=== PATIENT | male | born 1960 | race African-American/Black ===

== ENCOUNTER 2021-01-06 09:56 | Inpatient (IN) | payer OTHER ==
[2021-01-06] MEDS ORDERED: P-EPHED 60MG/TRIPROLIDI 2.5MG TABLET PO PRN (11:00)
[2021-01-06] MEDS ORDERED: ACETAMINOPHEN 325 MG TABLET (FP) PO PRN (11:00)
[2021-01-06] MEDS ORDERED: IBUPROFEN 400 MG TABLET (FP) PO PRN (11:00)
[2021-01-06] MEDS ORDERED: guaiFENesin 200 MG/10 ML 10 ML UNIT-DOSE CUPS PO PRN (11:00)
[2021-01-06] MEDS ORDERED: NICOTINE 10 MG CARTRIDGE (INHALER) IH PRN (11:00)
[2021-01-06] MEDS ORDERED: MAGNESIUM HYDROX 2400MG/30ML ORAL SUSPENSION 30 ML CUP PO PRN (11:00)
[2021-01-06] MEDS ORDERED: MAGNESIUM CITRATE 300 ML BOTTLE PO PRN (11:00)
[2021-01-06] MEDS ORDERED: MAG HYDROX/AL HYDROX/SIMETH 30 ML UNIT-DOSE CUP PO PRN (11:00)
[2021-01-06] MEDS ORDERED: LOPERAMIDE HCL 2 MG CAPSULE PO PRN (11:00)
[2021-01-06 11:03] VITALS: BMI 26.9
[2021-01-06] MEDS ORDERED: FLU VACC QS2021-22(6MOS UP)/PF 60 MCG/0.5 ML SYRINGE IM ONE (12:00)
[2021-01-06] MEDS ORDERED: TUBERCULIN PPD 5 TU/0.1ML VIAL ID ONE ×2 (12:40→12:59)
[2021-01-06] MEDS: PRENATAL VITAMINS W/ FOLIC ACID TABLET (FP) PO SCH (12:56)
[2021-01-06] MEDS: NICOTINE 7 MG/24 HOURS TOPICAL PATCH TD SCH (12:56)
[2021-01-06] MEDS: hydrOXYzine PAMOATE 25 MG CAPSULE (FP) PO SCH ×3 (15:33→21:30)
[2021-01-06 17:23] LABS: HEMATOCRIT 43.2 % (35.4-49); HEMOGLOBIN 14.3 GM/dL (11.7-16.9); MCH 27.9 pg (25.7-33.7); MCHC 33.1 g/dl (32.0-35.9); MEAN CELL VOLUME 84.4 fl (80-96); MEAN PLT VOLUME 7.7 fl (7.5-11.1); PLATELET COUNT 295 10^3/uL (134-434); RBC 5.12 M/mm3 (4.00-5.60); RDW 15.5 % (11.9-15.9); WHITE BLOOD COUNT 6.9 K/mm3 (4.0-10.0)
[2021-01-06 17:32] LABS: CALCIUM 9.6 mg/dL (8.5-10.1)
[2021-01-06 17:33] LABS: BLOOD UREA NITROGEN 15.5 mg/dL (7-18)
[2021-01-06 17:36] LABS: CREATININE 1.6 mg/dL (0.55-1.3)
[2021-01-06 17:37] LABS: BILIRUBIN,TOTAL 0.2 mg/dL (0.2-1)
[2021-01-06 17:39] LABS: TOT PROT 7.6 g/dl (6.4-8.2)
[2021-01-06 17:54] LABS: SYPHILIS W/ RPR CONF NON-REACTIVE (NONREACTIVE)
[2021-01-06] MEDS: THIAMINE HCL 100 MG TABLET (FP) PO SCH (21:29)
[2021-01-06] MEDS: MELATONIN 5 MG TABLETS PO SCH (21:30)
[2021-01-07] MEDS: hydrOXYzine PAMOATE 25 MG CAPSULE (FP) PO SCH ×5 (06:13→21:51)
[2021-01-07 10:42] LABS: PH,URINE 5.5 (5.0-8.0); URINE APPEARANCE CLEAR; URINE BILIRUBIN NEGATIVE (NEGATIVE); URINE COLOR YELLOW; URINE GLUCOSE (UA) NEGATIVE (NEGATIVE); URINE KETONE TRACE (NEGATIVE); URINE LEUK ESTERASE NEGATIVE (NEGATIVE); URINE NITRITE NEGATIVE (NEGATIVE); URINE PROTEIN NEGATIVE (NEGATIVE); URINE UROBILINOGEN 0.2 mg/dL (0.2-1.0)
[2021-01-07] MEDS: NICOTINE 7 MG/24 HOURS TOPICAL PATCH TD SCH (11:00)
[2021-01-07] MEDS: PRENATAL VITAMINS W/ FOLIC ACID TABLET (FP) PO SCH (11:00)
[2021-01-07] MEDS ORDERED: PATIENT'S OWN MEDICATION (NON-FORMULARY) (Dolutegravir Sodium/Lamivudine [Dovato 50-300 Mg PO SCH (15:45)
[2021-01-07] MEDS: metoPROLOL SUCCINATE 25 MG TAB.SR.24H (FP) PO SCH (17:16)
[2021-01-07] MEDS: THIAMINE HCL 100 MG TABLET (FP) PO SCH (21:51)
[2021-01-07] MEDS: MELATONIN 5 MG TABLETS PO SCH (21:51)
[2021-01-08] MEDS: hydrOXYzine PAMOATE 25 MG CAPSULE (FP) PO SCH ×6 (06:25→21:43)
[2021-01-08] MEDS: PRENATAL VITAMINS W/ FOLIC ACID TABLET (FP) PO SCH (10:02)
[2021-01-08] MEDS: SERTRALINE HCL 50 MG TABLET (FP) PO SCH (10:02)
[2021-01-08] MEDS: metoPROLOL SUCCINATE 25 MG TAB.SR.24H (FP) PO SCH (10:02)
[2021-01-08] MEDS: ASPIRIN 81 MG CHEWABLE TABLETS PO SCH (10:02)
[2021-01-08] MEDS: NICOTINE 7 MG/24 HOURS TOPICAL PATCH TD SCH (10:03)
[2021-01-08 10:30] LABS: CALCIUM 9.4 mg/dL (8.5-10.1)
[2021-01-08 10:31] LABS: BLOOD UREA NITROGEN 10.8 mg/dL (7-18)
[2021-01-08 10:34] LABS: CREATININE 1.1 mg/dL (0.55-1.3)
[2021-01-08] MEDS: DOLUTEGRAVIR SODIUM 50 MG TABLET (NON-FORMULARY) PO SCH (10:38)
[2021-01-08] MEDS: THIAMINE HCL 100 MG TABLET (FP) PO SCH (21:43)
[2021-01-08] MEDS: MELATONIN 5 MG TABLETS PO SCH (21:43)
[2021-01-09] MEDS: hydrOXYzine PAMOATE 25 MG CAPSULE (FP) PO SCH ×5 (07:09→22:45)
[2021-01-09] MEDS: metoPROLOL SUCCINATE 25 MG TAB.SR.24H (FP) PO SCH (07:35)
[2021-01-09] MEDS: ASPIRIN 81 MG CHEWABLE TABLETS PO SCH (10:35)
[2021-01-09] MEDS: NICOTINE 7 MG/24 HOURS TOPICAL PATCH TD SCH (10:35)
[2021-01-09] MEDS: DOLUTEGRAVIR SODIUM 50 MG TABLET (NON-FORMULARY) PO SCH (10:35)
[2021-01-09] MEDS: PRENATAL VITAMINS W/ FOLIC ACID TABLET (FP) PO SCH (10:35)
[2021-01-09] MEDS: SERTRALINE HCL 50 MG TABLET (FP) PO SCH (10:35)
[2021-01-09] MEDS: THIAMINE HCL 100 MG TABLET (FP) PO SCH (22:45)
[2021-01-09] MEDS: MELATONIN 5 MG TABLETS PO SCH (22:45)
[2021-01-10] MEDS: metoPROLOL SUCCINATE 25 MG TAB.SR.24H (FP) PO SCH (05:57)
[2021-01-10] MEDS: hydrOXYzine PAMOATE 25 MG CAPSULE (FP) PO SCH (05:57)
[2021-01-10] MEDS: DOLUTEGRAVIR SODIUM 50 MG TABLET (NON-FORMULARY) PO SCH (07:13)
[2021-01-10] MEDS ORDERED: PT OWN MED DRAWER 7, Y5N ONE (07:34)
[2021-01-10 07:37] VITALS: BP 152/111; PULSE 65; TEMP 97.7
== END 2021-01-10 08:22 | disposition left against medical advice (07) | DRG 894 ==
LOC: YASAS 09:56 → Y3W 11:27
PROVIDERS: ADMIT Allergy & Immunology; ATTEND Allergy & Immunology
PROC: HZ42ZZZ Group Counseling for Substance Abuse Treatment, Cognitive-Behavioral (ICD-10-PCS; principal; 2021-01-06)
DX: F14.20 Cocaine dependence, uncomplicated (principal); F19.280 Other psychoactive substance dependence with psychoactive substance-induced anxiety disorder; B20 Human immunodeficiency virus [HIV] disease; F17.210 Nicotine dependence, cigarettes, uncomplicated; Z79.899 Other long term (current) drug therapy; I25.10 Atherosclerotic heart disease of native coronary artery without angina pectoris; I10 Essential (primary) hypertension; Z95.5 Presence of coronary angioplasty implant and graft; J44.9 Chronic obstructive pulmonary disease, unspecified; E66.9 Obesity, unspecified; Z88.0 Allergy status to penicillin; Z91.013 Allergy to seafood
CPT/HCPCS: 36415; 80048; 80053; 81003; 82947; 85027; 86780; 86803; 87811; 90686; 93005; 93010; C9803; G0008; U0003; U0005